=== PATIENT | female | born 1950 | race Caucasian/White ===

== ENCOUNTER → 2017-07-20 | Outpatient (CLI) | payer OTHER | END | disposition home or self-care (01) | LOC: CFH 10:24 | PROVIDERS: ATTEND Internal Medicine | DX: Z12.31 Encounter for screening mammogram for malignant neoplasm of breast (principal); Z85.3 Personal history of malignant neoplasm of breast; Z92.21 Personal history of antineoplastic chemotherapy; Z92.3 Personal history of irradiation | CPT/HCPCS: 77063; 77067 ==

== ENCOUNTER → 2018-10-06 | Outpatient (CLI) | payer OTHER | END | disposition home or self-care (01) | LOC: CFH 08:58 | PROVIDERS: ATTEND Internal Medicine | DX: Z12.31 Encounter for screening mammogram for malignant neoplasm of breast (principal) | CPT/HCPCS: 77063; 77067 ==

== ENCOUNTER 2020-10-04 10:47 | Outpatient (CLI) | payer MEDICARE | END 2020-10-04 23:59 | disposition home or self-care (01) | LOC: CFH 10:47 | PROVIDERS: ATTEND Internal Medicine | DX: Z12.31 Encounter for screening mammogram for malignant neoplasm of breast (principal); T07.XXXA Unspecified multiple injuries, initial encounter; M85.88 Other specified disorders of bone density and structure, other site; X58.XXXA Exposure to other specified factors, initial encounter | CPT/HCPCS: 77063; 77067; 77080 ==

== ENCOUNTER → 2020-11-07 | Outpatient (CLI) | payer MEDICARE | END | disposition home or self-care (01) | LOC: CFH 12:10 | PROVIDERS: ATTEND Internal Medicine | DX: R92.0 Mammographic microcalcification found on diagnostic imaging of breast (principal); R92.8 Other abnormal and inconclusive findings on diagnostic imaging of breast; Z85.3 Personal history of malignant neoplasm of breast | CPT/HCPCS: 77065 ==